=== PATIENT | female | born 1995 | race Caucasian/White ===

== ENCOUNTER 2021-05-13 15:54 | Emergency (ER) | payer BC, SELFPAY ==
[2021-05-13 15:55] VITALS: BP 106/62; PULSE 80; RESP 14; TEMP 36.8; O2SAT 100
[2021-05-13 16:27] LABS: Basophils Absolute Auto 0.1 K/mm3 (0.0-0.1); Basophils Percent Auto 0.3 % (0.2-1.2); Eosinophils Absolute Auto 0.1 K/mm3 (0-0.3); Eosinophils Percent Auto 0.7 % (0-4.4); Hematocrit 37.7 % (37.0-47.0); Hemoglobin 12.7 g/dL (12.0-15.0); Immature Granulocyte Absolute 0.22 K/mm3 (0.00-0.031); Immature Granulocyte Percent A 1.4 % (0-0.5); Lymphocytes Absolute Auto 3.01 K/mm3 (0.9-3.2); Lymphocytes Percent Auto 18.9 % (18.3-44.2); Mean Corpuscular HGB Conc 33.7 g/dl (32-36); Mean Corpuscular Hemoglobin 30.5 pg (26-34); Mean Corpuscular Volume 90.4 fl (80-100); Mean Platelet Volume 9.8 fl (7.4-10.4); Monocytes Absolute Auto 0.9 K/mm3 (0.1-0.6); Monocytes Percent Auto 5.5 % (2.6-8.5); Neutrophils Absolute Auto 11.7 K/mm3 (1.3-6.7); Neutrophils Percent Auto 73.2 % (45.5-73.1); Platelet Count Result 277 k/mm3 (150-375); Red Blood Count 4.17 M/mm3 (4.2-5.4); White Blood Count 15.9 K/mm3 (4.5-10.0)
[2021-05-13 16:40] LABS: Alanine Aminotransferase 15 U/L (4-35); Albumin Level 3.9 g/dL (3.5-5.1); Alkaline Phosphatase 135 U/L (38-126); Anion Gap 5 mmol/L (8-16); Aspartate Amino Transferase 20 U/L (14-36); Bilirubin,Total 0.5 mg/dL (0.2-1.3); Blood Urea Nitrogen 7 mg/dL (7-17); Calcium 9.1 mg/dL (8.4-10.2); Carbon Dioxide 23 mmol/L (22-30); Chloride 109 mmol/L (98-107); Estimated Glomerular Filt Rate > 60; Glucose 94 mg/dL (65-110); Lipase 65 U/L (23-300); Potassium 3.8 mmol/L (3.4-5.0); Sodium 137 mmol/L (137-145)
[2021-05-13] MEDS: ONDANSETRON INJ 4 MG/2 ML VIAL IV PUSH (17:08)
[2021-05-13] MEDS: SODIUM CHLORIDE 0.9% IV 1,000 ML 999 ML IV CONT (17:08)
[2021-05-13 17:13] VITALS: BP 106/63; BP 110/64; PULSE 82; PULSE 93
[2021-05-13 17:14] VITALS: BP 112/69; PULSE 96
[2021-05-13 18:06] LABS: Add Urine Microscopic? YES; Appearance Urine Clear (Clear); Bilirubin Urine Negative (Negative); Blood Urine Negative (Negative); Color Urine Amber (Yellow); Glucose Urine UA Negative (Negative); Ketones Urine 2+ mg/dL (Negative); Leukocyte Esterase Ur Negative LEU/UL (Negative); Mucus Urine Rare /lpf; Nitrate Urine Negative (Negative); Protein Urine 1+ mg/dL (Negative); RBC Urine 0-2 /hpf (0-2); Specific Grav Ur 1.024 (1.001-1.035); Squamous Epithelial Cell Urine Many /hpf (Few)
--- NOTE | 2021-05-13 21:23 | ED.GENADULT ---
HPI - General Adult General Chief complaint: Nausea/Vomiting/Diarrhea Stated complaint: 7 mos preg, n/v Time Seen by Provider: 05/13/21 16:34 Source: patient and family (Father) Mode of arrival: ambulatory Limitations: no limitations History of Present Illness HPI narrative: Patient is a 25-year-old female with chief complaint of nausea and vomiting over the past week. Patient report that she is 29 weeks . Patient reports that she was previously seen at the wound clinic in [place] and is undergoing rehab for methamphetamines however she has been clean her entire and is now trying to find a [employer] in this area and having some difficulty. Patient reports that she has also had some cough. She denies fevers, chills. Related Data Allergies Allergy/AdvReac Type Severity Reaction Status Date / Time No Known Allergies Allergy Unverified 03/05/16 16:49 Review of Systems Review of Systems: CONSTITUTIONAL: Denies fever, chills, or sweats. EYES: Denies visual changes, redness, or discharge. ENT: Denies rhinorrhea, congestion, sore throat, or otalgia. CARDIOVASCULAR: Denies chest pain, palpitations, or edema. RESPIRATORY: Reports cough denies dyspnea. GASTROINTESTINAL: Reports nausea and vomiting denies abdominal pain or diarrhea. GENITOURINARY: Denies dysuria or hematuria. SKIN: Denies rash or itching. MUSCULOSKELETAL: Denies back pain, joint pain, or myalgia. NEUROLOGIC: Denies headache, numbness, dizziness, or weakness. PSYCHIATRIC: Denies anxiety or depression. Exam Narrative: GENERAL: Well-appearing, well-nourished, and in no acute distress. Nontoxic in appearance. HEAD: Normocephalic, atraumatic. EYES: PERRLA and EOMI. CHEST: Clear to auscultation. No respiratory distress. No wheezes rales or rhonchi HEART: Regular rate and rhythm. No murmur heard. Normal peripheral pulses. ABDOMEN: Soft, nontender, nondistended, normal active bowel sounds. EXTREMITIES: Normal range of motion. No edema. SKIN: Warm, dry, no rash. NEURO: No focal deficits. Alert and oriented x3. PSYCH: Normal mood and affect. Course Vital Signs Vital signs: Vital Signs Temperature 98.2 F 05/13/21 15:55 Pulse Rate 80 05/13/21 15:55 Respiratory Rate 14 05/13/21 15:55 Blood Pressure 106/62 05/13/21 15:55 Pulse Oximetry 100 05/13/21 15:55 Temperature 98.2 F 05/13/21 15:55 Pulse Rate 96 05/13/21 17:14 Respiratory Rate 14 05/13/21 15:55 Blood Pressure 112/69 05/13/21 17:14 Pulse Oximetry 100 05/13/21 15:55 Medical Decision Making MDM Narrative Medical decision making narrative: Patient reports improvement in her symptoms after receiving Zofran 1 L of fluids. Consult with Dr. Bolivar [employer]. She also feels the patient may benefit from an additional liter of fluids. She declines the need to give patient p.o. potassium. She states to have the patient follow-up in her office and they will review her options of switching from [facility] to their office for her [employer] needs. Patient given Zofran prescription for home. Patient vital signs are stable. Patient has been swabbed for Covid. patient urine did not show signs of infection. Vital Signs Vital Signs: Vital Signs Temperature 98.2 F 05/13/21 15:55 Pulse Rate 80 05/13/21 15:55 Respiratory Rate 14 05/13/21 15:55 Blood Pressure 106/62 05/13/21 15:55 Pulse Oximetry 100 05/13/21 15:55 Temperature 98.2 F 05/13/21 15:55 Pulse Rate 96 05/13/21 17:14 Respiratory Rate 14 05/13/21 15:55 Blood Pressure 112/69 05/13/21 17:14 Pulse Oximetry 100 05/13/21 15:55 Lab Data Result diagrams: 05/13/21 16:16 05/13/21 16:16 Labs: Lab Results 05/13/21 05/13/21 05/13/21 Range/Units 16:16 16:16 17:56 WBC 15.9 H (4.5-10.0) K/mm3 RBC 4.17 L (4.2-5.4) M/mm3 Hgb 12.7 (12.0-15.0) g/dL Hct 37.7 (37.0-47.0) % MCV 90.4 (80-100) fl MCH 30.5 (26-34) pg MCHC 33.7 (
== END 2021-05-13 21:07 | disposition home or self-care (01) ==
PROVIDERS: Emergency Provider Emergency Medicine
DX: O21.9 Vomiting of pregnancy, unspecified (principal); Z3A.29 29 weeks gestation of pregnancy
CPT/HCPCS: 36415; 80053; 81001; 81025; 83690; 85025; 96361; 96374; 99284; J2405; J7030

== ENCOUNTER 2021-06-22 12:30 | Outpatient (CLI) | payer BC, SELFPAY ==
--- NOTE | ~2021-06-22 | US_ITS ---
EXAMINATION: US OB follow up DATE: 06/22/2021 13:05 INDICATION: Encounter for supervision of normal . TECHNIQUE: Real-time ultrasound of the pelvis was performed. COMPARISON: None. FINDINGS: There is a single living fetus in vertex presentation. The placenta is anterior. heart rate is 145 beats per minute (bpm). The amniotic fluid index is 11.5 cm, which is normal. The following biometric data were obtained: Biparietal diameter (BPD): 8.8 cm; head circumference (HC): 32.9 cm; abdominal circumference (AC): 32 .2 cm; femur length (FL): 6.5 cm. These measurements are concordant. Estimated weight is 2677 g +/- 402 g, which correlates with the 60th percentile when 07/27/21 is used as estimated date of delivery. As single measurements, these parameters are each equal to the following estimated gestational ages: BPD: 33 weeks 3 days. HC: 37 weeks 3 days. AC: 36 weeks 1 days. FL: 33 weeks 2 days. estimated gestational age based solely on measurements from this exam is 35 weeks 4 days +/- 2 weeks 3 days. IMPRESSION: 1. Single living fetus in vertex presentation. 2. Estimated weight is 2677 g +/- 402 g, which correlates with the 60th percentile when 2 is used as estimated date of delivery. Reviewed, dictated and finalized at location A. [facility] [employer] IMPRESSION: 1. Single living fetus in vertex presentation. 2. Estimated weight is 2677 g +/- 402 g, which correlates with the 60th percentile when 07/27/21 is used as estimated date of delivery.
== END 2021-06-22 12:31 | disposition home or self-care (01) ==
PROVIDERS: Visit Provider Obstetrics & Gynecology
DX: Z34.93 Encounter for supervision of normal pregnancy, unspecified, third trimester (principal); Z3A.35 35 weeks gestation of pregnancy
CPT/HCPCS: 76816

== ENCOUNTER 2022-01-22 20:39 | Emergency (ER) | payer BC, SELFPAY ==
--- NOTE | ~2022-01-22 | XR_ITS ---
EXAM: XR lumbar spine 2-3V DATE: 01/22/2022 21:27 HISTORY: mid-sag lower back pain since yesterday after bending over . COMPARISON: None available. FINDINGS: 5 nonrib-bearing lumbar-type vertebral bodies. Pedicles intact. Normal vertebral body alig nment. Vertebral body heights preserved. Disc spaces maintained. Normal facets and posterior elements . No fracture or dislocation. IMPRESSION: No acute fracture or traumatic malalignment detected in the lumbar spine. Reviewed, dictated and finalized at location K.
[2022-01-22 20:52] VITALS: BP 130/68; PULSE 128; RESP 16; TEMP 36.6; O2SAT 98
--- NOTE | 2022-01-22 21:07 | ED.BACK ---
HPI - Back Pain/Injury General Chief Complaint: Back Pain/Injury Stated Complaint: back injury Time Seen by Provider: 01/22/22 20:57 History of Present Illness HPI Narrative: 26-year-old female presents to the emergency room for evaluation of low back pain. Patient states that she was picking up her infant child when she felt a pulling sensation in her lower back. Patient states that she is injury occurred yesterday. Denies any urinary or bowel symptoms. Patient states sitting down and standing up exacerbates the pain. Reports taking an ibuprofen just prior to arrival with no alleviation of symptoms. Related Data Home Medications Medication Instructions Recorded Confirmed vitamins-iron fumarate 65 1 tablet PO DAILY 05/16/21 07/30/21 mg iron-folic acid 1 mg tablet Allergies Allergy/AdvReac Type Severity Reaction Status Date / Time No Known Allergies Allergy Verified 01/22/22 20:56 Review of Systems Review of Systems: CONSTITUTIONAL: Denies fever, chills, or sweats. EYES: Denies visual changes, redness, or discharge. ENT: Denies rhinorrhea, congestion, sore throat, or otalgia. CARDIOVASCULAR: Denies chest pain, palpitations, or edema. RESPIRATORY: Denies cough or dyspnea. GASTROINTESTINAL: Denies abdominal pain, nausea, vomiting, or diarrhea. GENITOURINARY: Denies dysuria or hematuria. SKIN: Denies rash or itching. MUSCULOSKELETAL: Reports low back pain NEUROLOGIC: Denies headache, numbness, dizziness, or weakness. PSYCHIATRIC: Denies anxiety or depression. [facility] Family History Family History Father Hypertension Heart disease Social History Social History Smoking status: Current every day smoker Tobacco type: cigarettes Alcohol intake: never Substance use: former Substance use type: methamphetamine Last use: 11/14/2020 Additional living arrangements comments: father Gender identity (if verbalized by the patient): Female Sexual Orientation (if Verbalized by the Patient): Straight or Heterosexual Spiritual care concerns: No Exam Narrative: GENERAL: Well-appearing, well-nourished, no physical limitations, and in no acute distress. HEAD: Normocephalic, atraumatic. EYES: Conjunctivae normal, PERRLA and EOMI. CHEST: Clear to auscultation. No respiratory distress. No wheezes rales or rhonchi. No tenderness. HEART: Regular rate and rhythm. No murmur heard. Normal peripheral pulses. BACK: Midline lumbar tenderness, tenderness to the bilateral lower thoracolumbar fascia, no step-offs, no bony abnormality; FROM, +SLR bilaterally EXTREMITIES: Normal range of motion. No edema. No clubbing or cyanosis SKIN: Warm, dry, no rash. No noted wounds NEURO: No focal deficits. Alert and oriented x3. MAEW. CN's II-XI intact bilaterally, normal gait PSYCH: Cooperative. Normal mood and affect. Course Vital Signs Vital signs: Vital Signs Temperature 36.6 C 01/22/22 20:52 Pulse Rate 128 H 01/22/22 20:52 Respiratory Rate 16 01/22/22 20:52 Blood Pressure 130/68 01/22/22 20:52 Pulse Oximetry 98 01/22/22 20:52 Oxygen Delivery Room Air 01/22/22 20:52 Temperature 36.6 C 01/22/22 20:52 Pulse Rate 128 H 01/22/22 20:52 Respiratory Rate 16 01/22/22 20:52 Blood Pressure 130/68 01/22/22 20:52 Pulse Oximetry 98 01/22/22 20:52 Oxygen Delivery Room Air 01/22/22 20:52 MDM - Back Pain/Injury Imaging Data Radiologist's impression: Impressions Lumbar Spine X-Ray 01/22/22 21:29 IMPRESSION: No acute fracture or traumatic malalignment detected in the lumbar spine. Discharge Plan Discharge Clinical Impression: Strain of lumbar region Patient Disposition: Home, Self-Care Condition: Stable Prescriptions: New methocarbamol 500 mg tablet 500 mg PO HS Qty: 14 0RF No Action vit-iron fum-folic ac 65 mg i
[2022-01-22 21:48] VITALS: BP 122/68; PULSE 78; RESP 18; O2SAT 99
== END 2022-01-22 21:49 | disposition home or self-care (01) ==
PROVIDERS: Emergency Provider Nurse Practitioner Family
DX: S39.012A Strain of muscle, fascia and tendon of lower back, initial encounter (principal); F17.210 Nicotine dependence, cigarettes, uncomplicated; X50.0XXA Overexertion from strenuous movement or load, initial encounter
CPT/HCPCS: 72100; 99283

== ENCOUNTER 2022-08-17 06:33 | Emergency (ER) | payer BC, SELFPAY ==
--- NOTE | ~2022-08-17 | CT_ITS ---
EXAMINATION: CT pelvis w con DATE: 08/17/2022 08:29 INDICATION: Perianal abscess. TECHNIQUE: Computed tomography (CT) of the pelvis was performed with 100 mL Omnipaque 350 intravenous contrast. Automated exposure control and iterative reconstruction technique were employed. The dose- length product was 397.09 mGy-cm. COMPARISON: CT abdomen and pelvis 03/05/2016 FINDINGS: There are no dilated loops of bowel. The appendix is normal. There is a 3.3 cm cyst in left ovary, likely a follicular cyst. There is mild bilateral inguinal lymphadenopathy. The rectum is nor mal. There is no free intraperitoneal fluid. There is mild lumbar spondylosis. IMPRESSION: 1. No perianal abscess. 2. 3.3 cm cyst in left ovary, likely a follicular cyst. 3. Mild bilateral inguinal lymphadenopathy, likely reactive. Reviewed, dictated and finalized at location A.
[2022-08-17 06:38] VITALS: BP 120/69; PULSE 106; RESP 18; TEMP 36.6; O2SAT 100
[2022-08-17 08:11] LABS: Basophils Absolute Auto 0.1 K/mm3 (0.0-0.1); Basophils Percent Auto 0.6 % (0.2-1.2); Eosinophils Absolute Auto 0.3 K/mm3 (0-0.3); Eosinophils Percent Auto 3.2 % (0-4.4); Hematocrit 44.5 % (37.0-47.0); Hemoglobin 14.7 g/dL (12.0-15.0); Immature Granulocyte Absolute 0.05 K/mm3 (0.00-0.031); Immature Granulocyte Percent A 0.5 % (0-0.5); Lymphocytes Percent Auto 27.6 % (18.3-44.2); Mean Corpuscular Hemoglobin 29.5 pg (26-34); Mean Corpuscular Volume 89.2 fl (80-100); Mean Platelet Volume 9.4 fl (7.4-10.4); Monocytes Absolute Auto 0.9 K/mm3 (0.1-0.6); Monocytes Percent Auto 9.5 % (2.6-8.5); Neutrophils Absolute Auto 5.8 K/mm3 (1.3-6.7); Neutrophils Percent Auto 58.6 % (45.5-73.1); Platelet Count Result 328 k/mm3 (150-375); Red Blood Count 4.99 M/mm3 (4.2-5.4); Red Cell Distribution Width 13.4 % (11.5-14.5); White Blood Count 9.8 K/mm3 (4.5-10.0)
[2022-08-17 08:13] LABS: Anion Gap 7 mmol/L (8-16); Blood Urea Nitrogen 18 mg/dL (7-17); Calcium 8.6 mg/dL (8.4-10.2); Carbon Dioxide 30 mmol/L (22-30); Chloride 102 mmol/L (98-107); Estimated CRCL calculation 106 ml/min; Estimated Glomerular Filt Rate > 60; Glucose 124 mg/dL (65-110); Potassium 3.9 mmol/L (3.4-5.0); Sodium 139 mmol/L (137-145)
--- NOTE | 2022-08-17 09:08 | ED.GENADULT ---
HPI - General Adult General Chief complaint: Unspecified Stated complaint: rectal pain Time Seen by Provider: 08/17/22 07:04 History of Present Illness HPI narrative: Patient is a 27-year-old female who presents ER with pain in her rectum. Ongoing over the last week. Has mucoid discharge. Was concerned it was a hemorrhoid as she has been diagnosed with one previously and has been applying topical hydrocortisone. She has been doing warm water soaks. She has tried it but feels well. No fevers or chills or sweats. She does report some inguinal discomfort and some swelling of her right labia. No abnormal vaginal discharge. No dysuria. Related Data Home Medications Medication Instructions Recorded Confirmed vitamins-iron fumarate 65 1 tablet PO DAILY 05/16/21 07/30/21 mg iron-folic acid 1 mg tablet Allergies Allergy/AdvReac Type Severity Reaction Status Date / Time No Known Allergies Allergy Verified 01/22/22 20:56 Review of Systems Review of Systems: All systems reviewed & are unremarkable except as noted in HPI and below Constitutional: Constitutional: Denies chills and Denies fever(s) Gastrointestinal: Gastrointestinal: Denies abdominal pain, Denies nausea and Denies vomiting Comments: rectal pain Genitourinary: Comments: labial swelling PMFSH Family History Family History Father Hypertension Heart disease Social History Social History Smoking status: Current every day smoker Tobacco type: cigarettes Alcohol intake: never Substance use: former Substance use type: methamphetamine Last use: 11/14/2020 Living arrangements: with family Additional living arrangements comments: father Occupation/Education: unemployed Gender identity (if verbalized by the patient): Female Sexual Orientation (if Verbalized by the Patient): Straight or Heterosexual Spiritual care concerns: No Exam Narrative: GENERAL: Well-appearing, well-nourished, and in no acute distress. HEAD: Normocephalic, atraumatic. EYES: PERRL and EOMI. ENT: Mucous membranes moist. CHEST: Clear to auscultation. No respiratory distress. HEART: Regular rate and rhythm. Normal peripheral pulses. ABDOMEN: Soft, nontender, nondistended, normal active bowel sounds. Bilateral inguinal lymphadenopathy palpated. : Small hemorrhoid of external rectum is nonthrombosed and nonbleeding. There is a firm cystic area with a midline at the perineum near the rectum that has recent drainage. No overlying cellulitis. Right labia minora slightly inflamed but no discharge or tenderness. EXTREMITIES: Normal range of motion. No edema. SKIN: Warm, dry, no rash. NEURO: Alert and oriented x3. PSYCH: Normal mood and affect. Course Course Emergency Course: Patient informed of lab and imaging results. Discussed perineal cyst with Dr. Bruce and will place patient on short course antibiotic and recommend follow-up in clinic. Will likely need excision. Return precautions discussed. Discharge home. Vital Signs Vital signs: Vital Signs Temperature 98 F 08/17/22 06:38 Pulse Rate 106 H 08/17/22 06:38 Respiratory Rate 18 08/17/22 06:38 Blood Pressure 120/69 08/17/22 06:38 Pulse Oximetry 100 08/17/22 06:38 Oxygen Delivery Room Air 08/17/22 06:38 Temperature 98 F 08/17/22 06:38 Pulse Rate 106 H 08/17/22 06:38 Respiratory Rate 18 08/17/22 06:38 Blood Pressure 120/69 08/17/22 06:38 Pulse Oximetry 100 08/17/22 06:38 Oxygen Delivery Room Air 08/17/22 06:38 Medical Decision Making Vital Signs Vital Signs: Vital Signs Temperature 98 F 08/17/22 06:38 Pulse Rate 106 H 08/17/22 06:38 Respiratory Rate 18 08/17/22 06:38 Blood Pressure 120/69 08/17/22 06:38 Pulse Oximetry 100 08/17/22 06:38 Oxygen Delivery Room Air 08/17/22 06:38 [place]
== END 2022-08-17 09:23 | disposition home or self-care (01) ==
PROVIDERS: Emergency Provider Emergency Medicine
DX: K66.8 Other specified disorders of peritoneum (principal); F17.210 Nicotine dependence, cigarettes, uncomplicated; N83.202 Unspecified ovarian cyst, left side
CPT/HCPCS: 36415; 72193; 80048; 81025; 85025; 99283; 99284; Q9967